=== PATIENT | female | born 1995 | race Caucasian/White ===

== ENCOUNTER 2025-04-22 03:41 | Outpatient (CLI) | payer SELFPAY ==
[2025-04-22 12:53] LABS: Abs Immature Grans 0.04 10^3/uL (0.0-0.06); HCT 35.9 % (36.0-46.0); HGB 12.0 g/dL (11.2-15.7); Immature Grans % 0.6 %; MCH 29.1 pg (27.0-33.0); MCHC 33.4 % (32.0-36.0); MCV 87 fL (80-95); MPV 11.6 fL (8.0-11.0); Platelet Count 184 10^3/uL (130-400); RBC 4.13 10^6/uL (3.93-5.22); RDW 12.4 % (11.7-14.6); RDW-SD 39.3 fL; WBC 7.25 10^3/uL (4.4-10.8)
[2025-04-22 13:33] LABS: Hemoglobin A1C 5.4 % (<5.7)
[2025-04-22 14:19] LABS: TSH (W/Ref FT4) 1.50 uIU/mL (0.36-3.74)
[2025-04-23 10:06] LABS: HIV-1/2 Ag & Ab Screen Negative (Negative)
[2025-04-23 10:31] LABS: Hepatitis C Ab w Rflx HCV PCR Negative (Negative)
[2025-04-23 11:04] LABS: Rubella IgG Ab (UVM) Positive (See Note)
[2025-04-24 16:44] LABS: Syphilis IgG w/Reflex Nonreactive (Nonreactive)
== END 2025-04-22 03:42 | disposition home or self-care (01) ==
LOC: LBO 03:41
PROVIDERS: Visit Provider Advanced Practice Midwife
DX: Z34.91 Encounter for supervision of normal pregnancy, unspecified, first trimester (principal)
CPT/HCPCS: 36415; 86787; 86803; 86850; 86900; 86901; 87340; 87389; 83036; 84443; 85025; 86038; 86762; 86780; 86870

== ENCOUNTER 2025-04-22 11:21 | Outpatient (REF) | payer SELFPAY ==
[2025-04-22 14:07] LABS: Cannabinoids THC Negative (Negative)
[2025-04-23 11:16] LABS: Chlamydia Result Negative (Negative); GC Result Negative (Negative)
[2025-04-23 12:27] LABS: Fentanyl Scr w/Rfx Confirm Negative ng/mL (<1)
== END 2025-04-22 11:22 | disposition home or self-care (01) ==
LOC: LBN 11:21
PROVIDERS: Visit Provider Advanced Practice Midwife
DX: Z34.91 Encounter for supervision of normal pregnancy, unspecified, first trimester (principal)
CPT/HCPCS: 80307; 80348; 87491; 87591; 87086

== ENCOUNTER 2025-04-23 12:13 | Outpatient (CLI) | payer SELFPAY ==
[2025-04-23 16:39] LABS: Lab Add On Test DONE
== END 2025-04-23 12:14 | disposition home or self-care (01) ==
LOC: LBO 12:15
PROVIDERS: Visit Provider Advanced Practice Midwife
DX: Z34.91 Encounter for supervision of normal pregnancy, unspecified, first trimester (principal); O36.1910 Maternal care for other isoimmunization, first trimester, not applicable or unspecified
CPT/HCPCS: 86870; 86880; 86900; 86905

== ENCOUNTER 2025-05-17 18:59 | Emergency (ER) | payer SELFPAY ==
[2025-05-17 19:01] VITALS: BP 115/66; PULSE 90; RESP 18; TEMP 36.1; O2SAT 98
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
[2025-05-17 19:40] VITALS: RESP 18
== END 2025-05-17 19:45 | disposition home or self-care (01) ==
LOC: ER 19:42
PROVIDERS: Emergency Provider General Practice
DX: O99.891 Other specified diseases and conditions complicating pregnancy (principal); R10.32 Left lower quadrant pain
CPT/HCPCS: 80053; 83690; 99282; 83605; 85025; 99283

== ENCOUNTER 2025-05-21 15:21 | Outpatient (CLI) | payer SELFPAY ==
[2025-05-23 10:50] LABS: Rubella IgG Ab (UVM) Positive (See Note)
== END 2025-05-21 15:22 | disposition home or self-care (01) ==
LOC: LBO 15:25
DX: Z02.1 Encounter for pre-employment examination (principal)
CPT/HCPCS: 36415; 86735; 86762; 86765